=== PATIENT | female | born 1965 | race Caucasian/White ===

== ENCOUNTER 2017-09-28 18:05 | Emergency (ER) | payer OTHER ==
[2017-09-28 18:12] VITALS: BP 150/73
[2017-09-28] MEDS ORDERED: LORAZEPAM 1 MG TABLET PO ONE (19:01)
--- NOTE | 2017-09-28 19:05 | ER Document Report ---
ED Medical Screen (RME) - General Chief Complaint: Anxiety Stated Complaint: SEVERE ANXIETY Time Seen by Provider: 09/28/17 19:00 Mode of Arrival: Ambulatory Information source: Patient Notes: This is a 52-year-old female with a history of depression, anxiety and panic attacks who presents to the emergency room feeling very anxious. Patient has had a couple of deaths in the family over the past year and has had several job changes and has been feeling under stressed. Patient denies any chest pain, shortness of breath. Patient denies any suicidal homicidal patient's. Patient states that currently she is not followed by psychiatrist (her previous one left ). TRAVEL OUTSIDE OF THE [place] IN LAST 30 DAYS: No - Related Data Allergies/Adverse Reactions: bee venom protein (honey bee) Allergy (Verified 09/28/17 18:06) nitrous oxide Allergy (Verified 09/28/17 18:06) sumatriptan [From Imitrex] Allergy (Verified 09/28/17 18:06) Past Medical History - General Information source: Patient - Social History Cigarette use (# per day): No Chew tobacco use (# tins/day): No Frequency of alcohol use: None Drug Abuse: None Lives with: Family Family history: None - Medical History Medical History: Negative Neurological Medical History: Reports: Hx Migraine Renal/ Medical History: Denies: Hx Peritoneal Dialysis Musculoskeltal Medical History: Reports Hx Arthritis Skin Medical History: Reports Other - Atopic dermatitis Psychiatric Medical History: Reports: Hx Anxiety, Hx Depression Past Surgical History: Reports: Hx Orthopedic Surgery Review of Systems - Review of Systems Constitutional: denies: Chills, Fever EENT: denies: Eye discharge, Throat swelling Cardiovascular: denies: Chest pain, Palpitations, Heart racing Respiratory: denies: Hemoptysis, Short of breath, Wheezing Gastrointestinal: No symptoms reported Genitourinary: No symptoms reported Female Genitourinary: No symptoms reported Musculoskeletal: No symptoms reported Skin: No symptoms reported Hematologic/Lymphatic: No symptoms reported Neurological/Psychological: See HPI Physical Exam - Vital signs Vitals: Temp Pulse Resp BP Pulse Ox 98.6 F 96 16 150/73 H 98 09/28/17 18:10 09/28/17 18:10 09/28/17 18:10 09/28/17 18:10 09/28/17 18:10 Notes: Physical exam: GENERAL: 52-year-old female, alert and oriented 3, she does appear anxious. Otherwise, she is in no acute distress. HEAD: Atraumatic, normocephalic. EYES: Pupils equal round and reactive to light, extraocular movements intact, sclera anicteric, conjunctiva are normal. ENT: TMs normal, nares patent, oropharynx clear without exudates. Moist mucous membranes. NECK: Normal range of motion, supple without obvious mass or JVD. LUNGS: Breath sounds clear to auscultation bilaterally and equal. No wheezes rales or rhonchi. HEART: Regular rate and rhythm without murmurs, rubs or gallops. ABDOMEN: Soft, normoactive bowel sounds. No tenderness to palpation. No guarding, no rebound. No masses appreciated. EXTREMITIES: Normal range of motion, no pitting or edema. No clubbing or cyanosis. NEUROLOGICAL: Cranial nerves II through XII grossly intact. Normal speech, moving all extremities. PSYCH: Anxious. Denies suicidal ideation, homicidal ideation SKIN: Warm, Dry, normal turgor, no rashes or lesions noted. Course - Vital Signs Vital signs: Temp Pulse Resp BP Pulse Ox 98.6 F 96 16 150/73 H 98 09/28/17 18:10 09/28/17 18:10 09/28/17 18:10 09/28/17 18:10 09/28/17 18:10 Doctor's Discharge - Discharge Clinical Impression: Panic attack Condition: Stable Disposition: HOME, SELF-CARE Instructions: Anxiety (OM) Additional Instructions: Recommendations: Continue current medicines. Return to the emergency room for any thoughts of wanting to hurt herself or others, or any thoughts that she was losing control. Followup with your psychiatrist or counselor within the next 2 days. If you do not have a psychiatrist or counselor, you can followup at one of the following: Call them for their accepted payment schedule: [facility] [address] Deuce Lawson [phone] Outpatient services: [phone] [place] Office: [phone] Accepts self pay [facility] [address] [facility] [address] [place] [phone] Accepts self pay [facility] [address] [place], [place] Crisis Response: [phone] Outpatient services: [phone] Accepts self pay [facility] [address] [place], [place] [phone] [facility] [address] [place], [place] [phone] [place], [facility] [address] [facility] [address] [place], [place] Accepts self pay Prescriptions: Lorazepam [Ativan 1 mg Tablet] 1 tab PO TID #20 tablet Venlafaxine HCl ER [Effexor Xr 37.5 mg Cap.sr] 37.5 mg PO DAILY #30 cap.sr.24h Forms: Return to Work Referrals: LISA BROWN MD [Primary Care Provider] - Follow up in 3-5 days
== END 2017-09-28 19:06 | disposition home or self-care (01) ==
LOC: ER 18:05
DX: F41.0 Panic disorder [episodic paroxysmal anxiety] (principal); Z91.030 Bee allergy status; Z88.6 Allergy status to analgesic agent; Z88.8 Allergy status to other drugs, medicaments and biological substances
CPT/HCPCS: 99283

== ENCOUNTER 2019-10-19 18:29 | Inpatient (IN) | payer OTHER ==
[2019-10-19] MEDS ORDERED: HYDROCODONE/ACETAMINOPHEN 5-325 MG TABLET PO ONE (18:59)
--- NOTE | 2019-10-19 18:59 | ER Document Report ---
ED Medical Screen (RME) - General Chief Complaint: Leg Pain Stated Complaint: RIGHT LEG PAIN, DRAINAGE Time Seen by Provider: 10/19/19 18:42 Mode of Arrival: Ambulatory Information source: Patient Notes: 54-year-old female presented to ED for red swollen painful right foot ankle and lower leg. She states she has eczema normally to the medial ankle but on Saturday the ankle started swelling becoming red and more painful. She states she went to the urgent care today they sent her site to the hospital due to the amount of redness swelling and pain to the foot and ankle. She states it is weeping. I have ordered blood urine and x-rays to the right foot and ankle. She has a history of eczema, anxiety, panic attack, kidney stones with surgery to remove stones, migraines ovarian cysts with hysterectomy due to the size of the ovarian cyst, tonsillectomy and oral surgery. She states she does smoke 10 cigarettes a day does not use any alcohol but does use CBD oil for her anxiety. She does have a temperature of 100.0 pulse of 109 blood pressure of 163/102 was 20 respirations. She states she does not have a history of high blood pressure. I have greeted and performed a rapid initial assessment of this patient. A comprehensive ED assessment and evaluation of the patient, analysis of test results and completion of medical decision making process will be conducted by an additional ED providers. TRAVEL OUTSIDE OF THE [place] IN LAST 30 DAYS: No - Related Data Allergies/Adverse Reactions: bee venom protein (honey bee) Allergy (Verified 09/28/17 18:06) nitrous oxide Allergy (Verified 09/28/17 18:06) sumatriptan [From Imitrex] Allergy (Verified 09/28/17 18:06) Past Medical History - Social History Frequency of alcohol use: None Drug Abuse: None Family history: None Neurological Medical History: Reports: Hx Migraine Renal/ Medical History: Denies: Hx Peritoneal Dialysis Musculoskeltal Medical History: Reports Hx Arthritis Psychiatric Medical History: Reports: Hx Anxiety, Hx Depression Past Surgical History: Reports: Hx Orthopedic Surgery Physical Exam - Vital signs Vitals: Temp Pulse Resp BP Pulse Ox 100.0 F 109 H 20 163/102 H 97 10/19/19 18:33 10/19/19 18:33 10/19/19 18:33 10/19/19 18:33 10/19/19 18:33 Course - Vital Signs Vital signs: Temp Pulse Resp BP Pulse Ox 100.0 F 109 H 20 163/102 H 97 10/19/19 18:33 10/19/19 18:33 10/19/19 18:33 10/19/19 18:33 10/19/19 18:33
[2019-10-19 19:27] LABS: ABSOLUTE BASOPHILS # (AUTO) 0.1 10^3/uL (0.0-0.2); ABSOLUTE EOSINOPHILS # (AUTO) 0.2 10^3/uL (0.0-0.6); ABSOLUTE LYMPHOCYTES (AUTO) 2.2 10^3/uL (0.5-4.7); ABSOLUTE MONOCYTES (AUTO) 0.7 10^3/uL (0.1-1.4); ABSOLUTE NEUT (AUTO) 7.7 10^3/uL (1.7-8.2); BASOPHILS % (AUTO) 0.5 % (0-2); EOSINOPHILS % (AUTO) 1.6 % (0-6); HEMATOCRIT 28.5 % (36.0-47.0); HEMOGLOBIN 9.2 g/dL (12.0-15.5); LYMPHOCYTES % (AUTO) 20.6 % (13-45); MEAN CORPUSCULAR HEMOGLOBIN 24.1 pg (27.0-33.4); MEAN CORPUSCULAR HGB CONC 32.4 g/dL (32.0-36.0); MEAN CORPUSCULAR VOLUME 74 fl (80-97); MONOCYTES % (AUTO) 6.4 % (3-13); PLATELET COUNT 360 10^3/uL (150-450); RED BLOOD COUNT 3.83 10^6/uL (3.72-5.28); SEGMENTED NEUTROPHILS % (AUTO) 70.9 % (42-78); TOTAL CELLS COUNTED % (AUTO) 100 %; WHITE BLOOD COUNT 10.9 10^3/uL (4.0-10.5)
[2019-10-19 19:38] LABS: APPEARANCE,URINE CLEAR; BILIRUBIN,URINE NEGATIVE (NEGATIVE); COLOR,URINE COLORLESS; GLUCOSE, URINE NEGATIVE (NEGATIVE); KETONES,URINE TRACE mg/dL (NEGATIVE); LEUKOCYTE ESTERASE,URINE NEGATIVE (NEGATIVE); NITRITE,URINE NEGATIVE (NEGATIVE); PROTEIN,URINE NEGATIVE (NEGATIVE); URINE SPECIFIC GRAVITY 1.002; UROBILINOGEN,URINE NEGATIVE mg/dL (<2.0)
[2019-10-19 19:45] LABS: ALBUMIN 3.8 g/dL (3.5-5.0); ALKALINE PHOSPHATASE 28 U/L (38-126); ANION GAP 11 (5-19); ASPARTATE AMINO TRANSFERASE 16 U/L (14-36); BILIRUBIN,DIRECT 0.3 mg/dL (0.0-0.4); BILIRUBIN,TOTAL 0.3 mg/dL (0.2-1.3); BLOOD UREA NITROGEN 7 mg/dL (7-20); CALCIUM 8.8 mg/dL (8.4-10.2); CARBON DIOXIDE 27 mmol/L (22-30); CHLORIDE 103 mmol/L (98-107); GLUCOSE 89 mg/dL (75-110); POTASSIUM 3.2 mmol/L (3.6-5.0)
[2019-10-19 20:11] LABS: C-REACTIVE PROTEIN 211.4 mg/L (<10.0)
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
[2019-10-19] MEDS ORDERED: PIPERACILLIN/TAZOBACTAM 4.5 GM VIAL IV ONE (21:22)
[2019-10-19] MEDS ORDERED: VANCOMYCIN HCL INJ 1000 MG VIAL IV ONE ×2 (21:23→23:59)
[2019-10-19] MEDS ORDERED: MORPHINE SULFATE 10 MG/ML INJ IV ONE (21:24)
[2019-10-19] MEDS ORDERED: ONDANSETRON HCL INJ/PF 4 MG/2 ML SDV IV ONE (21:25)
--- NOTE | 2019-10-19 21:25 | ER Document Report ---
ED General - General Chief Complaint: Leg Pain Stated Complaint: RIGHT LEG PAIN, DRAINAGE Time Seen by Provider: 10/19/19 18:42 Mode of Arrival: Ambulatory Information source: Patient TRAVEL OUTSIDE OF THE [place] IN LAST 30 DAYS: No - HPI Notes: Patient is a 54-year-old female with a history of atopic eczema who presents for right lower leg swelling and pain. Patient states symptoms began with a flare of her eczema her right medial ankle four days ago and quickly worsened. Patient states her eczema usually flares due to stress and she endorses stress at work. Patient states her symptoms progressed as her eczema flare worsened with spreading erythema and blistering to her upper oconnor and posterior calf. Patient states the blisters popped over the past 2 days and have been weeping. Patient reports the pain is the worst to her medial ankle and describes it as a hot, sharp, stabbing pain. Patient has used cortisone 10 and aloe cream for relief. She denies fever, chills, nausea, vomiting, and abdominal pain. Patient endorses smoking tobacco but denies alcohol and recreational drug use. She reports using CBD for anxiety. - Related Data Allergies/Adverse Reactions: bee venom protein (honey bee) Allergy (Verified 09/28/17 18:06) nitrous oxide Allergy (Verified 09/28/17 18:06) sumatriptan [From Imitrex] Allergy (Verified 09/28/17 18:06) Past Medical History - General Information source: Patient - Social History Smoking Status: Current Every Day Smoker Frequency of alcohol use: None Drug Abuse: None Family History: Reviewed & Not Pertinent Neurological Medical History: Reports: Hx Migraine Renal/ Medical History: Denies: Hx Peritoneal Dialysis Musculoskeletal Medical History: Reports Hx Arthritis Skin Medical History: Reports Hx Eczema Psychiatric Medical History: Reports: Hx Anxiety, Hx Depression Past Surgical History: Reports: Hx Orthopedic Surgery Review of Systems - Review of Systems Constitutional: No symptoms reported EENT: No symptoms reported Cardiovascular: No symptoms reported Respiratory: No symptoms reported Gastrointestinal: No symptoms reported Genitourinary: No symptoms reported Female Genitourinary: No symptoms reported Musculoskeletal: See HPI Skin: See HPI Hematologic/Lymphatic: No symptoms reported Neurological/Psychological: No symptoms reported Physical Exam - Vital signs Vitals: Temp Pulse Resp BP Pulse Ox 100.0 F 109 H 20 163/102 H 97 10/19/19 18:33 10/19/19 18:33 10/19/19 18:33 10/19/19 18:33 10/19/19 18:33 - Notes Notes: PHYSICAL EXAMINATION: GENERAL: Well-appearing, well-nourished and in no acute distress. HEAD: Atraumatic, normocephalic. EYES: Pupils equal round and reactive to light, extraocular movements intact, sclera anicteric, conjunctiva are normal. ENT: nares patent, oropharynx clear without exudates. Moist mucous membranes. NECK: Normal range of motion, supple without lymphadenopathy LUNGS: Breath sounds clear to auscultation bilaterally and equal. No wheezes rales or rhonchi. HEART: Regular rate and rhythm without murmurs ABDOMEN: Soft, nontender, normoactive bowel sounds. No guarding, no rebound. No masses appreciated. EXTREMITIES: Significant edema and erythema to the right lower extremity. Scaling and peeling skin noted on the anterior and medial ankle. Multiple popped blisters on the upper oconnor and posterior calf. Area warm to touch. NEUROLOGICAL: No focal neurological deficits. Moves all extremities spontaneously and on command. PSYCH: Normal mood, normal affect. SKIN: Warm, Dry, normal turgor, no rashes or lesions noted. Course - Re-evaluation Re-evalutation: Patient is a 54 y/o female with a hx of eczema who presents with right leg pain and swelling that has been ongoing for the last four days. Patient's symptoms b irene as an eczema flare to her right medial ankle. Her symptoms worsened and on exam and she has extensive swelling and erythema to her right lower leg with multiple weeping blisters. Patient is afebrile and vital signs are normal. Elevated WBC of 10.9 and CRP of 211.4. IV Vancomycin and Zosyn were started. There was a concern for necrotizing fasciitis due to the severity of her cellulitis so CT leg was ordered which was negative. Discussed patient with Dr. Whiteside, hospitalist, and patient will admitted to the medical floor as a full admission. - Vital Signs Vital signs: Temp Pulse Resp BP Pulse Ox 99.1 F 82 20 156/71 H 100 10/20/19 03:09 10/20/19 03:09 10/20/19 03:09 10/20/19 03:09 10/20/19 03:09 - Laboratory Result Diagrams: 10/19/19 19:07 10/19/19 19:07 Laboratory results interpreted by me: 10/19/19 10/19/19 10/19/19 19:07 19:07 19:21 WBC 10.9 H Hgb 9.2 L Hct 28.5 L MCV 74 L MCH 24.1 L RDW 17.0 H Potassium 3.2 L Alkaline Phosphatase 28 L C-Reactive Protein 211.4 H Urine Ketones TRACE H Urine Blood SMALL H - Diagnostic Test Radiology reviewed: Image reviewed, Reports reviewed Discharge - Discharge Clinical Impression: CRP elevated Cellulitis, leg Qualifiers: Laterality: right Qualified Code(s): L03.115 - Cellulitis of right lower limb Eczema Qualifiers: Eczema type: unspecified Qualified Code(s): L30.9 - Dermatitis, unspecified Condition: Stable Disposition: ADMITTED INPATIENT Admitting Provider: Miesha (Hospitalist) Unit Admitted: Medical Floor
[2019-10-19] MEDS ORDERED: ONDANSETRON HCL INJ/PF 4 MG/2 ML SDV ONE (21:47)
--- NOTE | 2019-10-19 23:02 | RADIOLOGY REPORT (SQ) ---
CT LOWER EXTREMITY WITH IV CONTRAST HISTORY: Leg pain. Evaluate for necrotizing fasciitis. COMPARISON: Radiographs from earlier the same day. TECHNIQUE: CT scan of the right lower extremity was performed without IV contrast. This exam was performed according to our departmental dose-optimization program, which includes automated exposure control, adjustment of the mA and/or kV according to patient size and/or use of iterative reconstruction technique. FINDINGS: There is diffuse subcutaneous edema throughout the right lower extremity. No abscess or fluid collection is seen. There is myofascial edema but no edema or fluid collection is seen within the compartments of the right leg. The subcutaneous or intramuscular air. There is no cortical erosion or periosteal reaction to suggest acute osteomyelitis. No acute fracture. There is a tiny Caballero's cyst. Trace knee joint fluid but no effusion. IMPRESSION: 1. Diffuse swelling of the right leg which may be secondary to cellulitis, venous stasis, or lymphedema. 2. No intramuscular edema, air, or fluid collection, with no evidence of necrotizing fasciitis. However, please note that contrast-enhanced MRI is more sensitive for the evaluation of early necrotizing fasciitis, and may be performed if there is high clinical concern.
[2019-10-20] MEDS ORDERED: MORPHINE SULFATE 10 MG/ML INJ IV PRN ×4 (01:31→01:41)
[2019-10-20] MEDS ORDERED: MELATONIN 5 MG TABLET PO PRN (01:31)
[2019-10-20] MEDS ORDERED: MAG HYDROX/AL HYDROX/SIMETH SUSP 30 ML UDCUP PO PRN (01:31)
[2019-10-20] MEDS ORDERED: LORAZEPAM INJ 2 MG/1 ML VIAL IV PRN (01:31)
[2019-10-20] MEDS ORDERED: PROMETHAZINE HCL INJ 25 MG/1 ML VIAL IV PRN ×2 (01:31→07:30)
[2019-10-20] MEDS ORDERED: METOPROLOL TARTRATE PF/INJ 5 MG/5 ML SDV IV PRN (01:31)
[2019-10-20] MEDS ORDERED: MAGNESIUM HYDROXIDE SUSP 30 ML UDCUP PO PRN (01:31)
[2019-10-20] MEDS ORDERED: GUAIFENESIN SYRP 200 MG/10 ML UDC PO PRN (01:31)
[2019-10-20] MEDS ORDERED: ACETAMINOPHEN 325 MG TABLET PO PRN (01:31)
[2019-10-20] MEDS ORDERED: HYDRALAZINE HCL INJ/PF 20 MG/1 ML SDV IV PRN (01:31)
[2019-10-20] MEDS: RINGERS SOLUTION,LACTATED 1,000 ML IV PRN ×2 (03:27→09:25)
--- NOTE | 2019-10-20 04:27 | PDOC H&P ---
History of Present Illness Admission Date/PCP: 10/20/19 01:25 No local PCP Patient complains of: Right lower extremity swelling and pain History of Present Illness: ADRIANA GRANADOS is a 54 year old female who presented the emergency room history of right lower extremity swelling and pain. She admits that 5 days ago she noticed a small area of eczema on her right medial ankle which appeared to be red. From that time the redness and swelling has gradually increased becoming very severe over the last 2 days with with multiple small superficial bullae with weeping and crusting. Her pain is a constant severe sharp hot stabbing sensation primarily centered around her right medial ankle without radiation, but worsened by walking or weightbearing. She denies other associated or accomp anying signs and symptoms. She denies prior similar episodes. She has not identified additional aggravating or ameliorating factors for her right lower extremity swelling and pain. In the emergency room she was found to have a minimally elevated white blood count and an obvious extensive cellulitis of the right lower extremity. IV antibiotic therapy was initiated in the emergency room. She was subsequently admitted to the hospital for further evaluation and treatment. Past Medical History Cardiac Medical History: Denies: Coronary Artery Disease, Hyperlipidema, Hypertension Pulmonary Medical History: Denies: Asthma, Chronic Obstructive Pulmonary Disease (COPD) EENT Medical History: Denies: Cataracts, Ears - Hearing aids Neurological Medical History: Reports: Migraine Denies: Hemorrhagic CVA, Ischemic CVA, Seizures Endocrine Medical History: Reports: Obesity Denies: Diabetes Mellitus Type 1, Diabetes Mellitus Type 2, Hyperthyroidism, Hypothyroidism Renal/ Medical History: Denies: Chronic Kidney Disease, Nephrolithiasis Malignancy Medical History: Reports: None GI Medical History: Denies: Cirrhosis, Hepatitis, Peptic Ulcer Disease Musculoskeltal Medical History: Reports: Arthritis Denies: Fibromyalgia, Gout Skin Medical History: Reports: Eczema Denies: Psoriasis Psychiatric Medical History: Reports: Depression, General Anxiety Disorder, Tobacco Dependency, Other - Panic attacks Denies: Alcohol Dependency, Substance Abuse Traumatic Medical History: Reports: None Hematology: Denies: Anemia, Bleeding Tendencies Infectious Medical History: Reports: Methicillin-Resistant Staph Aureus - Remote previous lower extremity cellulitis Past Surgical History Past Surgical History: Reports: Hysterectomy, Orthopedic Surgery, Tonsillectomy, Other - Left ureteral stone, oral surgeries Social History Information Source: Patient Lives with: Spouse/Significant other Smoking Status: Current Every Day Smoker Electronic Cigarette use?: No Frequency of Alcohol Use: None Hx Recreational Drug Use: No Drugs: None Hx Prescription Drug Abuse: No - Advance Directive Resuscitation Status: Full Code Surrogate healthcare decision maker:: Breezy Palomino Family History Family History: CAD, DM, Hypertension. denies: Malignancy Parental Family History Reviewed: Yes Children Family History Reviewed: No Sibling(s) Family History Reviewed.: Yes Medication/Allergy Home Medications: Lorazepam [Ativan 1 mg Tablet] 1 tab PO TID #20 tablet 09/28/17 Venlafaxine HCl ER [Effexor Xr 37.5 mg Cap.sr] 37.5 mg PO DAILY #30 cap.sr.24h 09/28/17 Allergies/Adverse Reactions: bee venom protein (honey bee) Allergy (Verified 09/28/17 18:06) nitrous oxide Allergy (Verified 09/28/17 18:06) sumatriptan [From Imitrex] Allergy (Verified 09/28/17 18:06) Review of Systems Constitutional: ABSENT: chills, fever(s) Eyes: ABSENT: visual disturbances, other - Eye pain Ears: ABSENT: hearing changes, other - Ear pain Nose, Mouth, and Throat: ABSENT: headache(s), sore throat Cardiovascular: ABSENT: chest pain, palpitations Respiratory: ABSENT: cough, dyspnea Gastrointestinal: ABSENT: abdominal pain, constipation, diarrhea, nausea, vomiting Genitourinary: ABSENT: dysuria, hematuria Musculoskeletal: ABSENT: back pain, joint swelling, muscle weakness Integumentary: PRESENT: as per HPI, rash - Right lower extremity. ABSENT: pruritus Neurological: ABSENT: confusion, convulsions, focal weakness, memory loss, syncope Psychiatric: ABSENT: anxiety, depression Endocrine: ABSENT: cold intolerance, heat intolerance Hematologic/Lymphatic: ABSENT: easy bleeding, easy bruising Allergic/Immunologic: ABSENT: seasonal rhinorrhea Physical Exam Vital Signs: Temp Pulse Resp BP Pulse Ox 98.1 F 78 16 155/59 H 98 10/20/19 00:23 10/20/19 00:23 10/20/19 00:23 10/20/19 00:23 10/20/19 00:23 Intake & Output 10/18/19 10/19/19 10/20/19 23:59 23:59 23:59 Intake Total 100 1000 Balance 100 1000 Weight 134.5 kg General appearance: PRESENT: no acute distress, cooperative, morbidly obese Head exam: PRESENT: atraumatic, normocephalic Eye exam: PRESENT: conjunctiva pink. ABSENT: conjunctival injection, scleral icterus Ear exam: PRESENT: normal external ear exam. ABSENT: bleeding, drainage Mouth exam: PRESENT: dry mucosa, neck supple Neck exam: ABSENT: thyromegaly, tracheal deviation Respiratory exam: PRESENT: clear to auscultation michael, symmetrical, unlabored Cardiovascular exam: PRESENT: RRR. ABSENT: clicks, gallop, rubs Pulses: PRESENT: normal carotid pulses, normal radial pulses Vascular exam: PRESENT: normal capillary refill. ABSENT: pallor GI/Abdominal exam: PRESENT: normal bowel sounds, soft. ABSENT: tenderness Rectal exam: PRESENT: deferred Extremities exam: PRESENT: tenderness - Erythema and edema of the right lower extremity with tenderness around the right medial malleolus. ABSENT: joint swelling Musculoskeletal exam: ABSENT: deformity, dislocation Neurological exam: PRESENT: alert, oriented to person, oriented to place, orien onur to time, oriented to situation, CN II-XII grossly intact. ABSENT: motor sensory deficit Psychiatric exam: PRESENT: appropriate affect, normal mood Skin exam: PRESENT: dry, erythema - Erythema and edema of the right lower extremity with multiple small bullae with weeping and crusting., intact, warm. ABSENT: jaundice, urticaria Results Laboratory Results: 10/19/19 19:07 10/19/19 19:07 10/19/19 10/19/19 10/19/19 19:07 19:07 19:21 WBC 10.9 H RBC 3.83 Hgb 9.2 L Hct 28.5 L MCV 74 L MCH 24.1 L MCHC 32.4 RDW 17.0 H Plt Count 360 Seg Neutrophils % 70.9 Sodium 141.4 Potassium 3.2 L Chloride 103 Carbon Dioxide 27 Anion Gap 11 BUN 7 Creatinine 0.62 Est GFR ( Amer) > 60 Glucose 89 Lactic Acid Calcium 8.8 Total Bilirubin 0.3 AST 16 Alkaline Phosphatase 28 L C-Reactive Protein 211.4 H Total Protein 7.0 Albumin 3.8 Urine Color COLORLESS Urine Appearance CLEAR Urine pH 7.0 Ur Specific Center 1.002 Urine Protein NEGATIVE Urine Glucose (UA) NEGATIVE Urine Ketones TRACE H Urine Blood SMALL H Urine Nitrite NEGATIVE Ur Leukocyte Esterase NEGATIVE Urine WBC (Auto) 0 10/19/19 20:44 WBC RBC Hgb Hct MCV MCH MCHC RDW Plt Count Seg Neutrophils % Sodium Potassium Chloride Carbon Dioxide Anion Gap BUN Creatinine Est GFR ( Amer) Glucose Lactic Acid 0.8 Calcium Total Bilirubin AST Alkaline Phosphatase C-Reactive Protein Total Protein Albumin Urine Color Urine Appearance Urine pH Ur Specific Center Urine Protein Urine Glucose (UA) Urine Ketones Urine Blood Urine Nitrite Ur Leukocyte Esterase Urine WBC (Auto) Impressions: Ankle X-Ray 10/19/19 18:54 IMPRESSION: 1. No fracture or dislocation. 2. Diffuse reticulation present throughout the subcutaneous tissues raising the possibility of edema, cellulitis, venous stasis. 3. Possible, diffuse soft tissue swelling of the forefoot. Foot X-Ray 10/19/19 18:54 IMPRESSION: 1. No fracture or dislocation. 2. Diffuse reticulation present throughout the subcutaneous tissues raising the possibility of edema, cellulitis, venous stasis. 3. Possible, diffuse soft tissue swelling of the forefoot. Lower Extremity CT 10/19/19 21:21 IMPRESSION: 1. Diffuse swelling of the right leg which may be secondary to cellulitis, venous stasis, or lymphedema. 2. No intramuscular edema, air, or fluid collection, with no evidence of necrotizing fasciitis. However, please note that contrast-enhanced MRI is more sensitive for the evaluation of early necrotizing fasciitis, and may be performed if there is high clinical concern. Assessment and Plan - Diagnosis (1) Cellulitis of right lower leg Is this a current diagnosis for this admission?: Yes (2) Hypertension Qualifiers: Hypertension type: unspecified Qualified Code(s): I10 - Essential (primary) hypertension Is this a current diagnosis for this admission?: Yes (3) CRP elevated Is this a current diagnosis for this admission?: Yes (4) Hypokalemia Is this a current diagnosis for this admission?: Yes (5) Morbid obesity Is this a current diagnosis for this admission?: Yes (6) Eczema Qualifiers: Eczema type: unspecified Qualified Code(s): L30.9 - Dermatitis, unspecified Is this a current diagnosis for this admission?: Yes - Plan Summary Summary: Patient will be admitted to the medical floor where she will receive routine supportive and symptomatic cares. She will be treated with IV antibiotics utilizing cefepime and Zyvox initially pending culture results. She will use Ativan 1 mg IV every 4 hours as needed for anxiety or restlessness. She will use morphine sulfate 2 to 4 mg IV every 2 hours as needed for pain. She will receive oral potassium repletion. She will be placed on a cardiac diet. CBCs, metabolic profiles and additional laboratory and/or radiographic evaluations will be obtained as needed. - Time Time Spent with patient: 15-24 minutes Anticipated Discharge Disposition: Home, Self Care Anticipated Discharge Timeframe: within 72 hours - Inpatient Certification Based on my medical assessment, after consideration of the patient's comorbidities, presenting symptoms, or acuity I expect that the services needed warrant INPATIENT care.: Yes I certify that my determination is in accordance with my understanding of Medicare's requirements for reasonable and necessary INPATIENT services [42 CFR 412.3e].: Yes Medical Necessity: Significant Comorbidiites Make Outpatient Treatment Too Risky, Need for Pain Control, Need for IV Antibiotics
[2019-10-20] MEDS: HEPARIN SOD (PORCINE) 5,000 UNIT/ML 1 ML VIAL SUBCUT SCH ×3 (05:21→21:47)
[2019-10-20] MEDS: CEFEPIME HCL 2 GM in DEXTROSE 5%-WATER 50 ML IV SCH ×2 (09:26→21:47)
[2019-10-20] MEDS: DOCUSATE SODIUM 100 MG CAPSULE PO SCH ×2 (09:27→17:09)
[2019-10-20] MEDS: POTASSIUM CHLORIDE 10 MEQ TABLET.ER PO SCH ×3 (09:27→17:09)
[2019-10-20] MEDS: LINEZOLID 600 MG/300 ML RTUPB IV SCH ×2 (09:55→21:48)
[2019-10-20] MEDS ORDERED: CEFEPIME 2 GM/D5W RTU 2 GM/50 ML RTUPB IV SCH (10:00)
[2019-10-20] MEDS: MORPHINE SULFATE 10 MG/ML INJ IV PRN ×2 (14:06→21:47)
[2019-10-20] MEDS: LORAZEPAM 0.5 MG TABLET PO PRN (17:43)
--- NOTE | 2019-10-20 18:21 | Progress Note ---
Provider Note Provider Note: Patient is a 54-year-old female with a past medical history significant for, arthritis, obesity, depression/general anxiety disorder, and tobacco dependency who was admitted early this morning by the knockout worker for Cellulitis of the right lower leg. Overnight events, nursing notes, vital signs, laboratory results, imaging studies, H&P, and orders reviewed. Agree with plan of care as established by the previous provider. In addition, patient complains of generalized anxiety and panic attacks; therefore have ordered ativan 0.5 mg po q8h prn. Have also requested registered account administrator of diet recommendations/education regarding weight loss.
[2019-10-21] MEDS: HEPARIN SOD (PORCINE) 5,000 UNIT/ML 1 ML VIAL SUBCUT SCH ×3 (05:29→21:19)
[2019-10-21] MEDS: LORAZEPAM 0.5 MG TABLET PO PRN ×2 (05:39→21:19)
[2019-10-21 06:44] LABS: HEMATOCRIT 26.4 % (36.0-47.0); HEMOGLOBIN 8.6 g/dL (12.0-15.5); MEAN CORPUSCULAR HEMOGLOBIN 24.1 pg (27.0-33.4); MEAN CORPUSCULAR HGB CONC 32.7 g/dL (32.0-36.0); MEAN CORPUSCULAR VOLUME 74 fl (80-97); PLATELET COUNT 308 10^3/uL (150-450); RED BLOOD COUNT 3.58 10^6/uL (3.72-5.28); RED CELL DISTRIBUTION WIDTH 17.4 % (11.5-14.0); WHITE BLOOD COUNT 8.8 10^3/uL (4.0-10.5)
[2019-10-21 07:01] LABS: ANION GAP 10 (5-19); BLOOD UREA NITROGEN 7 mg/dL (7-20); CALCIUM 8.8 mg/dL (8.4-10.2); CARBON DIOXIDE 30 mmol/L (22-30); CHLORIDE 101 mmol/L (98-107); GLUCOSE 113 mg/dL (75-110); POTASSIUM 3.7 mmol/L (3.6-5.0)
[2019-10-21] MEDS: POTASSIUM CHLORIDE 10 MEQ TABLET.ER PO SCH ×3 (09:39→17:26)
[2019-10-21] MEDS: DOCUSATE SODIUM 100 MG CAPSULE PO SCH ×2 (09:39→17:26)
[2019-10-21] MEDS: CEFEPIME HCL 2 GM in DEXTROSE 5%-WATER 50 ML IV SCH ×2 (09:39→21:19)
[2019-10-21] MEDS: MORPHINE SULFATE 10 MG/ML INJ IV PRN ×2 (09:40→20:08)
[2019-10-21] MEDS: LINEZOLID 600 MG/300 ML RTUPB IV SCH ×2 (10:43→21:20)
[2019-10-21] MEDS ORDERED: NICOTINE 14 MG/24 HR PATCH.TD24 TD PRN (10:46)
--- NOTE | 2019-10-21 13:07 | CDI QUERY ---
CDI Query CDI Review: Documentation in the Medical Record indicates this patient has: Height:5 ft. 6 in. Weight: 134.5 kg (295.9 lbs) Calculated BMI: 47.75 kg/m2 The following is also documented in the Medical Record: Per H&P: Morbid obesity Per Progress Note: Have also requested registered nurse cardiac telemetry of diet recommendations/education regarding weight loss. Based on your medical judgement, can you further clarify in the Progress Notes the diagnosis associated with these findings. Documentation of the patients BMI supports the Obesity diagnoses: Morbid Obesity / BMI 47.75 kg/m2 Overweight / BMI 47.75 kg/m2 Obesity / BMI 47.75 kg/m2 Other condition (please specify) None of the above / Not applicable Thank you for your consideration. SHADE Hunter RN Clinical Filer Repairer Physician Advisor
[2019-10-21] MEDS ORDERED: HYDROCORTISONE 1% CREAM 28.35 GM TP PRN (17:02)
--- NOTE | 2019-10-21 17:05 | PDOC PROGRESS REPORT ---
Subjective Progress Note for:: 10/21/19 Subjective:: Patient endorses only mild improvement in the swelling in her right lower extremity. Denies chills. Endorses she has a history of atopic dermatitis. Reason For Visit: RIGHT LOWER EXTREMITY CELLULITIS Physical Exam Vital Signs: Temp Pulse Resp BP Pulse Ox 98.2 F 82 19 165/70 H 97 10/21/19 12:21 10/21/19 12:21 10/21/19 12:21 10/21/19 12:21 10/21/19 12:21 Intake & Output 10/20/19 10/21/19 10/22/19 06:59 06:59 06:59 Intake Total 1320 4280 1265 Balance 1320 4280 1265 Weight 133.2 kg 133.2 kg 133.2 kg General appearance: PRESENT: no acute distress, cooperative Neck exam: ABSENT: JVD GI/Abdominal exam: PRESENT: soft. ABSENT: ascites, distended Extremities exam: PRESENT: other - Erythema and swelling of the right lower extremity much more significant than the left leg. Patch of erythema noted going up anterior oconnor. Atopic dermatitis noted on the right ankle. Neurological exam: PRESENT: alert, awake, oriented to person, oriented to place Psychiatric exam: ABSENT: agitated, anxious Results Laboratory Results: 10/21/19 06:19 10/21/19 06:19 10/21/19 10/21/19 10/21/19 06:19 06:19 06:19 WBC 8.8 RBC 3.58 L Hgb 8.6 L Hct 26.4 L MCV 74 L MCH 24.1 L MCHC 32.7 RDW 17.4 H Plt Count 308 Sodium 141.3 Potassium 3.7 Chloride 101 Carbon Dioxide 30 Anion Gap 10 BUN 7 Creatinine 0.62 Est GFR ( Amer) > 60 Glucose 113 H Calcium 8.8 Magnesium 2.1 TSH 2.72 Impressions: Ankle X-Ray 10/19/19 18:54 IMPRESSION: 1. No fracture or dislocation. 2. Diffuse reticulation present throughout the subcutaneous tissues raising the possibility of edema, cellulitis, venous stasis. 3. Possible, diffuse soft tissue swelling of the forefoot. Foot X-Ray 10/19/19 18:54 IMPRESSION: 1. No fracture or dislocation. 2. Diffuse reticulation present throughout the subcutaneous tissues raising the possibility of edema, cellulitis, venous stasis. 3. Possible, diffuse soft tissue swelling of the forefoot. Lower Extremity CT 10/19/19 21:21 IMPRESSION: 1. Diffuse swelling of the right leg which may be secondary to cellulitis, venous stasis, or lymphedema. 2. No intramuscular edema, air, or fluid collection, with no evidence of necrotizing fasciitis. However, please note that contrast-enhanced MRI is more sensitive for the evaluation of early necrotizing fasciitis, and may be performed if there is high clinical concern. Assessment and Plan - Diagnosis (1) Cellulitis of right lower leg Is this a current diagnosis for this admission?: Yes Plan: Continue broad-spectrum antibiotics with linezolid and cefepime. Blood culture currently negative. Patient is afebrile. Leukocytosis seems to be resolving. Area demarcated and will be reassessed tomorrow (2) Atopic dermatitis Qualifiers: Atopic dermatitis type: unspecified Qualified Code(s): L20.9 - Atopic dermatitis, unspecified Is this a current diagnosis for this admission?: Yes Plan: This is likely the source of patient's skin breakdown leading to cellulitis. She has atopic dermatitis involving right ankle. Hydrocortisone cream as needed. (3) Lymphedema of right lower extremity Is this a current diagnosis for this admission?: Yes Plan: Chronic. Encourage leg elevation. (4) Hypertension Qualifiers: Hypertension type: unspecified Qualified Code(s): I10 - Essential (primary) hypertension Is this a current diagnosis for this admission?: Yes Plan: BP is elevated currently but she denies history of hypertension. Possibly could be secondary to pain. Pain control. Hold off on standing antihypertensive for now but can use as needed if excessively high blood pressures. (5) Morbid obesity with BMI of 45.0-49.9, adult Is this a current diagnosis for this admission?: Yes - Time Time Spent with patient: 15-24 minutes Anticipated Discharge Disposition: Home, Self Care Anticipated Discharge Timeframe: within 48 hours
[2019-10-21] MEDS ORDERED: CHLORTHALIDONE 25 MG TABLET PO SCH (18:45)
[2019-10-21] MEDS: LOSARTAN POTASSIUM 50 MG TABLET PO SCH (20:00)
[2019-10-22] MEDS: HEPARIN SOD (PORCINE) 5,000 UNIT/ML 1 ML VIAL SUBCUT SCH ×3 (06:09→21:41)
[2019-10-22 06:46] LABS: ABSOLUTE RETICS # 0.047 10^6/uL (0.028-0.122); RETICULOCYTE COUNT (AUTO) 1.24 % (0.66-2.85)
[2019-10-22 07:03] LABS: ANION GAP 11 (5-19); BLOOD UREA NITROGEN 5 mg/dL (7-20); CALCIUM 8.7 mg/dL (8.4-10.2); CARBON DIOXIDE 30 mmol/L (22-30); CHLORIDE 101 mmol/L (98-107); GLUCOSE 122 mg/dL (75-110); IRON(TIBC) 35.2 ug/dL (37-170); POTASSIUM 4.1 mmol/L (3.6-5.0)
[2019-10-22] MEDS: POTASSIUM CHLORIDE 10 MEQ TABLET.ER PO SCH ×3 (07:57→19:37)
[2019-10-22 08:42] LABS: FOLATE 6.96 ng/mL (>2.76)
[2019-10-22] MEDS: DOCUSATE SODIUM 100 MG CAPSULE PO SCH ×2 (10:11→17:30)
[2019-10-22] MEDS: LOSARTAN POTASSIUM 50 MG TABLET PO SCH ×2 (10:11→21:42)
[2019-10-22] MEDS: LINEZOLID 600 MG/300 ML RTUPB IV SCH ×2 (10:12→22:56)
[2019-10-22] MEDS: CEFEPIME HCL 2 GM in DEXTROSE 5%-WATER 50 ML IV SCH ×2 (10:12→21:41)
--- NOTE | 2019-10-22 17:08 | PDOC PROGRESS REPORT ---
Subjective Progress Note for:: 10/22/19 Subjective:: Patient feeling better. Still having pain in her leg. Reason For Visit: RIGHT LOWER EXTREMITY CELLULITIS Physical Exam Vital Signs: Temp Pulse Resp BP Pulse Ox 98.7 F 72 16 168/72 H 96 10/22/19 10:46 10/22/19 10:46 10/22/19 10:46 10/22/19 10:46 10/22/19 10:46 Intake & Output 10/21/19 10/22/19 10/23/19 06:59 06:59 06:59 Intake Total 4280 3795 350 Balance 4280 3795 350 Weight 133.2 kg 133.2 kg General appearance: PRESENT: no acute distress, cooperative Neck exam: ABSENT: JVD Respiratory exam: PRESENT: unlabored GI/Abdominal exam: ABSENT: ascites, distended Extremities exam: PRESENT: other - redness in anterior oconnor from right knee to ankle. atopic dermatitis in right ankle Neurological exam: PRESENT: alert, awake, oriented to person, oriented to place, oriented to time Results Laboratory Results: 10/21/19 06:19 10/22/19 06:00 10/22/19 10/22/19 06:00 06:00 Retic Count (auto) 1.24 Sodium 141.8 Potassium 4.1 Chloride 101 Carbon Dioxide 30 Anion Gap 11 BUN 5 L Creatinine 0.61 Est GFR ( Amer) > 60 Glucose 122 H Calcium 8.7 Iron 35.2 L TIBC 321 % Saturation 11 Ferritin 62.50 Vitamin B12 266.0 Folate 6.96 Impressions: Ankle X-Ray 10/19/19 18:54 IMPRESSION: 1. No fracture or dislocation. 2. Diffuse reticulation present throughout the subcutaneous tissues raising the possibility of edema, cellulitis, venous stasis. 3. Possible, diffuse soft tissue swelling of the forefoot. Foot X-Ray 10/19/19 18:54 IMPRESSION: 1. No fracture or dislocation. 2. Diffuse reticulation present throughout the subcutaneous tissues raising the possibility of edema, cellulitis, venous stasis. 3. Possible, diffuse soft tissue swelling of the forefoot. Lower Extremity CT 10/19/19 21:21 IMPRESSION: 1. Diffuse swelling of the right leg which may be secondary to cellulitis, venous stasis, or lymphedema. 2. No intramuscular edema, air, or fluid collection, with no evidence of necrotizing fasciitis. However, please note that contrast-enhanced MRI is more sensitive for the evaluation of early necrotizing fasciitis, and may be performed if there is high clinical concern. Assessment and Plan - Diagnosis (1) Cellulitis of right lower leg Is this a current diagnosis for this admission?: Yes Plan: Continue broad-spectrum antibiotics with linezolid and cefepime. Blood culture currently negative. Patient is afebrile. Leukocytosis resolved. Area demarcated and will be reassessed tomorrow (2) Atopic dermatitis Qualifiers: Atopic dermatitis type: unspecified Qualified Code(s): L20.9 - Atopic dermatitis, unspecified Is this a current diagnosis for this admission?: Yes Plan: This is likely the source of patient's skin breakdown leading to cellulitis. She has atopic dermatitis involving right ankle. Hydrocortisone cream as needed. (3) Lymphedema of right lower extremity Is this a current diagnosis for this admission?: Yes Plan: Chronic. Encourage leg elevation. (4) Hypertension Qualifiers: Hypertension type: unspecified Qualified Code(s): I10 - Essential (primary) hypertension Is this a current diagnosis for this admission?: Yes Plan: Started on losartan 50 mg twice a day. (5) Iron deficiency anemia Qualifiers: Iron deficiency anemia type: unspecified iron deficiency Qualified Code(s): D50.9 - Iron deficiency anemia, unspecified Is this a current diagnosis for this admission?: Yes Plan: Hemoglobin stable. Start on ferrous sulfate. Outpatient follow-up. (6) Morbid obesity with BMI of 45.0-49.9, adult Is this a current diagnosis for this admission?: Yes - Time Time Spent with patient: Less than 15 minutes Anticipated Discharge Disposition: Home, Self Care Anticipated Discharge Timeframe: within 48 hours
--- NOTE | 2019-10-22 19:08 | RADIOLOGY REPORT (SQ) ---
EXAM DESCRIPTION: VENOUS UNILATERAL LOWER IMAGES COMPLETED DATE/TIME: 10/22/2019 6:51 pm REASON FOR STUDY: right leg swelling. r/o dvt COMPARISON: None. TECHNIQUE: Dynamic and static bernard scale and color images acquired of the right leg venous system. S elected spectral images acquired with additional compression and augmentation maneuvers. The contrala teral common femoral vein and saphenofemoral junction were also imaged. Images stored on PACS. LIMITATIONS: None. FINDINGS: COMMON FEMORAL: Normal phasicity, compression and augmentation. No visualized echogenic ma terial on bernard scale. No defects on color images. FEMORAL: Normal compression and augmentation. No visualized echogenic material on bernard scale. No defe cts on color images. POPLITEAL: Normal compression, augmentation. No visualized echogenic material on bernard scale. No defec ts on color images. CALF VESSELS: Normal compression, augmentation. No visualized echogenic material on bernard scale. No de fects on color images. GSV and SSV: Normal compression, augmentation. No visualized echogenic material on bernard scale. No def ects on color images. ANY DEEP VENOUS INSUFFICIENCY: Not evaluated. ANY EVIDENCE OF POPLITEAL CYST: No. OTHER: No other significant finding. CONTRALATERAL COMMON FEMORAL VEIN AND SAPHENOFEMORAL JUNCTION: Normal phasicity, compression and augmentation. No visualized echogenic material on bernard scale. No de fects on color images. IMPRESSION: NO EVIDENCE DVT OR SVT IN THE RIGHT LEG. TECHNICAL DOCUMENTATION: JOB ID: [id number] [employer]- All Rights Reserved Reading location - IP/workstation name: [email or web address]
[2019-10-22] MEDS: MORPHINE SULFATE 10 MG/ML INJ IV PRN (21:42)
[2019-10-23] MEDS: HEPARIN SOD (PORCINE) 5,000 UNIT/ML 1 ML VIAL SUBCUT SCH ×3 (06:03→21:18)
[2019-10-23] MEDS: LINEZOLID 600 MG/300 ML RTUPB IV SCH ×2 (09:40→21:59)
[2019-10-23] MEDS: CEFEPIME HCL 2 GM in DEXTROSE 5%-WATER 50 ML IV SCH ×2 (09:40→21:17)
[2019-10-23] MEDS: DOCUSATE SODIUM 100 MG CAPSULE PO SCH ×2 (09:40→19:13)
[2019-10-23] MEDS: FERROUS SULFATE 325 MG TABLET PO SCH (09:40)
[2019-10-23] MEDS: LOSARTAN POTASSIUM 50 MG TABLET PO SCH ×2 (09:40→21:17)
--- NOTE | 2019-10-23 15:35 | PDOC PROGRESS REPORT ---
Subjective Progress Note for:: 10/23/19 Reason For Visit: RIGHT LOWER EXTREMITY CELLULITIS Physical Exam Vital Signs: Temp Pulse Resp BP Pulse Ox 98.0 F 76 17 146/58 H 97 10/23/19 11:10 10/23/19 11:10 10/23/19 11:10 10/23/19 11:10 10/23/19 11:10 Intake & Output 10/22/19 10/23/19 10/24/19 06:59 06:59 06:59 Intake Total 3795 1465 50 Balance 3795 1465 50 Weight 133.2 kg 133.5 kg General appearance: PRESENT: no acute distress, cooperative Neck exam: ABSENT: JVD Respiratory exam: PRESENT: unlabored. ABSENT: accessory muscle use, retraction Extremities exam: PRESENT: other - REDNESS IN RLE IMPROVING Neurological exam: PRESENT: alert, awake, oriented to person, oriented to place, oriented to time Results Laboratory Results: 10/21/19 06:19 10/22/19 06:00 Impressions: Ankle X-Ray 10/19/19 18:54 IMPRESSION: 1. No fracture or dislocation. 2. Diffuse reticulation present throughout the subcutaneous tissues raising the possibility of edema, cellulitis, venous stasis. 3. Possible, diffuse soft tissue swelling of the forefoot. Foot X-Ray 10/19/19 18:54 IMPRESSION: 1. No fracture or dislocation. 2. Diffuse reticulation present throughout the subcutaneous tissues raising the possibility of edema, cellulitis, venous stasis. 3. Possible, diffuse soft tissue swelling of the forefoot. Lower Extremity CT 10/19/19 21:21 IMPRESSION: 1. Diffuse swelling of the right leg which may be secondary to cellulitis, venous stasis, or lymphedema. 2. No intramuscular edema, air, or fluid collection, with no evidence of necrotizing fasciitis. However, please note that contrast-enhanced MRI is more sensitive for the evaluation of early necrotizing fasciitis, and may be performed if there is high clinical concern. Venous Doppler Study 10/22/19 00:00 IMPRESSION: NO EVIDENCE DVT OR SVT IN THE RIGHT LEG. Assessment and Plan - Diagnosis (1) Cellulitis of right lower leg Is this a current diagnosis for this admission?: Yes Plan: Continue broad-spectrum antibiotics with linezolid and cefepime. Blood culture currently negative. Patient is afebrile. Leukocytosis resolved. Area demarcated and will be reassessed tomorrow Venous doppler negative for DVT (2) Atopic dermatitis Qualifiers: Atopic dermatitis type: unspecified Qualified Code(s): L20.9 - Atopic dermatitis, unspecified Is this a current diagnosis for this admission?: Yes (3) Lymphedema of right lower extremity Is this a current diagnosis for this admission?: Yes (4) Hypertension Qualifiers: Hypertension type: unspecified Qualified Code(s): I10 - Essential (primary) hypertension Is this a current diagnosis for this admission?: Yes (5) Iron deficiency anemia Qualifiers: Iron deficiency anemia type: unspecified iron deficiency Qualified Code(s): D50.9 - Iron deficiency anemia, unspecified Is this a current diagnosis for this admission?: Yes (6) Morbid obesity with BMI of 45.0-49.9, adult Is this a current diagnosis for this admission?: Yes - Time Time Spent with patient: Less than 15 minutes Anticipated Discharge Disposition: Home, Self Care Anticipated Discharge Timeframe: within 24 hours
[2019-10-24] MEDS: HEPARIN SOD (PORCINE) 5,000 UNIT/ML 1 ML VIAL SUBCUT SCH ×2 (05:58→13:37)
[2019-10-24] MEDS: FERROUS SULFATE 325 MG TABLET PO SCH (10:37)
[2019-10-24] MEDS: CEFEPIME HCL 2 GM in DEXTROSE 5%-WATER 50 ML IV SCH (10:37)
[2019-10-24] MEDS: LOSARTAN POTASSIUM 50 MG TABLET PO SCH (10:37)
[2019-10-24] MEDS: DOCUSATE SODIUM 100 MG CAPSULE PO SCH (10:37)
[2019-10-24] MEDS: LINEZOLID 600 MG/300 ML RTUPB IV SCH (11:35)
[2019-10-24 11:50] VITALS: BP 152/53
--- NOTE | 2019-10-24 13:16 | PDOC DISCHARGE SUMMARY ---
Impression - Admit/DC Date/PCP Admission Date/Primary Care Provider: 10/20/19 01:25 Discharge Date: 10/24/19 - Discharge Diagnosis (1) Cellulitis of right lower leg Is this a current diagnosis for this admission?: Yes (2) Atopic dermatitis Is this a current diagnosis for this admission?: Yes (3) Lymphedema of right lower extremity Is this a current diagnosis for this admission?: Yes (4) Hypertension Is this a current diagnosis for this admission?: Yes (5) Iron deficiency anemia Is this a current diagnosis for this admission?: Yes (6) Morbid obesity with BMI of 45.0-49.9, adult Is this a current diagnosis for this admission?: Yes - Additional Information Resuscitation Status: Full Code Referrals: [facility] [Provider Group] WILIAN KIM MD [ACTIVE STAFF] - Prescriptions: Sulfamethoxazole/Trimethoprim [Bactrim Ds Tablet] 1 each PO Q12 9 Days #18 tablet Losartan Potassium [Cozaar 50 mg Tablet] 50 mg PO Q12 30 Days #60 tablet Naproxen [EC-Naproxen] 1 - 2 tab PO TIDP PRN #24 tablet.dr JOHNSON Reason: Ferrous Sulfate [Feosol 325 mg Tablet] 325 mg PO DAILY #30 tablet Home Medications: Acetaminophen [Tylenol] 325 mg PO DAILYP PRN 10/20/19 Aspirin/Caffeine [Bc Pain Relief Powder Packet] 1 pkt PO DAILY PRN 10/20/19 Hydrocortisone [Cortizone-10] 57 gm TP DAILY 10/20/19 Omeprazole Magnesium [Prilosec Otc] 40 mg PO BID 10/20/19 Pamabrom [Diuretic Softgel] 50 mg PO Q8 10/20/19 Ferrous Sulfate [Feosol 325 mg Tablet] 325 mg PO DAILY #30 tablet 10/24/19 Losartan Potassium [Cozaar 50 mg Tablet] 50 mg PO Q12 30 Days #60 tablet 10/24/19 Naproxen [EC-Naproxen] 1 - 2 tab PO TIDP PRN #24 tablet. 10/24/19 Sulfamethoxazole/Trimethoprim [Bactrim Ds Tablet] 1 each PO Q12 9 Days #18 tablet 10/24/19 History of Present Illiness History of Present Illness: According to admitting provider: ADRIANA GRANADOS is a 54 year old female who presented the emergency room history of right lower extremity swelling and pain. She admits that 5 days ago she noticed a small area of eczema on her right medial ankle which appeared to be red. From that time the redness and swelling has gradually increased becoming very severe over the last 2 days with with multiple small superficial bullae with weeping and crusting. Her pain is a constant severe sharp hot stabbing sensation primarily centered around her right medial ankle without radiation, but worsened by walking or weightbearing. She denies other associated or accompanying signs and symptoms. She denies prior similar episodes. She has not identified additional aggravating or ameliorating factors for her right lower extremity swelling and pain. In the emergency room she was found to have a minimally elevated white blood count and an obvious extensive cellulitis of the right lower extremity. IV antibiotic therapy was initiated in the emergency room. She was subsequently admitted to the hospital for further evaluation and treatment. Hospital Course Hospital Course: (1) Cellulitis of right lower leg Is this a current diagnosis for this admission?: Yes Plan: CT scan of the lower extremity only showed soft tissue swelling consistent with cellulitis. Initially treated with broad-spectrum IV antibiotics with linezolid and cefepime. Blood culture currently negative. Patient is afebrile. Leukocytosis which resolved. Area demarcated improved significantly with IV antibiotics. Being discharged on oral Bactrim for 9 days. (2) Atopic dermatitis Qualifiers: Atopic dermatitis type: unspecified Qualified Code(s): L20.9 - Atopic dermatitis, unspecified Is this a current diagnosis for this admission?: Yes Plan: This is likely the source of patient's skin breakdown leading to cellulitis. She has atopic dermatitis involving right ankle. She uses cortisone cream at home. However she still has significant itching which leads to excoriations. I have given her a handwritten prescription for triamcinolone acetonide cream which is of hypotensive that the cortisone cream and hopefully should help with the itching to prevent further excoriations. (3) Lymphedema of right lower extremity Is this a current diagnosis for this admission?: Yes Plan: Chronic. Encourage leg elevation. Venous Doppler negative for any DVT. Patient encouraged to go his keep leg elevated and avoid standing for long periods. (4) Hypertension Qualifiers: Hypertension type: unspecified Qualified Code(s): I10 - Essential (primary) hypertension Is this a current diagnosis for this admission?: Yes Plan: Started on losartan 50 mg twice a day. (5) Iron deficiency anemia Qualifiers: Iron deficiency anemia type: unspecified iron deficiency Qualified Code(s): D50.9 - Iron deficiency anemia, unspecified Is this a current diagnosis for this admission?: Yes Plan: Hemoglobin stable. Start on ferrous sulfate. Outpatient follow-up. (6) Morbid obesity with BMI of 45.0-49.9, adult Is this a current diagnosis for this admission?: Yes Patient given information to follow-up to be established with a primary care provider. She will coordinate with our social team. Physical Exam Vital Signs: Temp Pulse Resp BP Pulse Ox 98.5 F 80 16 152/53 H 96 10/24/19 11:49 10/24/19 11:49 10/24/19 11:49 10/24/19 11:49 10/24/19 11:49 Intake & Output 10/23/19 10/24/19 10/25/19 06:59 06:59 06:59 Intake Total 1465 750 290 Balance 1465 750 290 Weight 133.5 kg 133.5 kg General appearance: PRESENT: no acute distress, cooperative Neck exam: ABSENT: JVD Respiratory exam: PRESENT: unlabored GI/Abdominal exam: PRESENT: soft Extremities exam: PRESENT: other - RLE swelling improving and area of erythema over anterior oconnor and posterior calf is improving as well. evidnced further by formation of skin wrinkles as the leg swelling improves Neurological exam: PRESENT: alert, awake Results Laboratory Results: WBC 8.8 10^3/uL (4.0-10.5) 10/21/19 06:19 RBC 3.58 10^6/uL (3.72-5.28) L 10/21/19 06:19 Hgb 8.6 g/dL (12.0-15.5) L 10/21/19 06:19 Hct 26.4 % (36.0-47.0) L 10/21/19 06:19 MCV 74 fl (80-97) L 10/21/19 06:19 MCH 24.1 pg (27.0-33.4) L 10/21/19 06:19 MCHC 32.7 g/dL (32.0-36.0) 10/21/19 06:19 RDW 17.4 % (11.5-14.0) H 10/21/19 06:19 Plt Count 308 10^3/uL (150-450) 10/21/19 06:19 Lymph % (Auto) 20.6 % (13-45) 10/19/19 19:07 Russell % (Auto) 6.4 % (3-13) 10/19/19 19:07 Eos % (Auto) 1.6 % (0-6) 10/19/19 19:07 Baso % (Auto) 0.5 % (0-2) 10/19/19 19:07 Reticulocyte # 0.047 10^6/uL (0.028-0.122) 10/22/19 06:00 Absolute Neuts (auto) 7.7 10^3/uL (1.7-8.2) 10/19/19 19:07 Absolute Lymphs (auto) 2.2 10^3/uL (0.5-4.7) 10/19/19 19:07 Absolute Monos (auto) 0.7 10^3/uL (0.1-1.4) 10/19/19 19:07 Absolute Eos (auto) 0.2 10^3/uL (0.0-0.6) 10/19/19 19:07 Absolute Basos (auto) 0.1 10^3/uL (0.0-0.2) 10/19/19 19:07 Seg Neutrophils % 70.9 % (42-78) 10/19/19 19:07 Retic Count (auto) 1.24 % (0.66-2.85) 10/22/19 06:00 Sodium 141.8 mmol/L (137-145) 10/22/19 06:00 Potassium 4.1 mmol/L (3.6-5.0) 10/22/19 06:00 Chloride 101 mmol/L (98-107) 10/22/19 06:00 Carbon Dioxide 30 mmol/L (22-30) 10/22/19 06:00 Anion Gap 11 (5-19) 10/22/19 06:00 BUN 5 mg/dL (7-20) L 10/22/19 06:00 Creatinine 0.61 mg/dL (0.52-1.25) 10/22/19 06:00 Est GFR ( Amer) > 60 (>60) 10/22/19 06:00 Est GFR (MDRD) Non-Af > 60 (>60) 10/22/19 06:00 Glucose 122 mg/dL (75-110) H 10/22/19 06:00 Hemoglobin A1c % 5.4 % (4.7-6.0) 10/21/19 06:19 Lactic Acid 0.8 mmol/L (0.7-2.1) 10/19/19 20:44 Calcium 8.7 mg/dL (8.4-10.2) 10/22/19 06:00 Magnesium 2.1 mg/dL (1.6-2.3) 10/21/19 06:19 Iron 35.2 ug/dL (37-170) L 10/22/19 06:00 TIBC 321 ug/dL (250-450) 10/22/19 06:00 % Saturation 11 % 10/22/19 06:00 Ferritin 62.50 ng/mL (11.1-264.0) 10/22/19 06:00 Total Bilirubin 0.3 mg/dL (0.2-1.3) 10/19/19 19:07 Direct Bilirubin 0.3 mg/dL (0.0-0.4) 10/19/19 19:07 Neonat Total Bilirubin Not Reportable 10/19/19 19:07 Neonat Direct Bilirubin Not Reportable 10/19/19 19:07 Neonat Indirect Bili Not Reportable 10/19/19 19:07 AST 16 U/L (14-36) 10/19/19 19:07 ALT 10 U/L (<35) 10/19/19 19:07 Alkaline Phosphatase 28 U/L (38-126) L 10/19/19 19:07 C-Reactive Protein 211.4 mg/L (<10.0) H 10/19/19 19:07 Total Protein 7.0 g/dL (6.3-8.2) 10/19/19 19:07 Albumin 3.8 g/dL (3.5-5.0) 10/19/19 19:07 Vitamin B12 266.0 pg/mL (239-931) 10/22/19 06:00 Folate 6.96 ng/mL (>2.76) 10/22/19 06:00 TSH 2.72 uIU/mL (0.47-4.68) 10/21/19 06:19 Urine Color COLORLESS 10/19/19 19: Urine Appearance CLEAR 10/19/19 19: Urine pH 7.0 (5.0-9.0) 10/19/19 19:21 Ur Specific [place] 1.002 10/19/19 19:21 Urine Protein NEGATIVE mg/dL (NEGATIVE) 10/19/19 19:21 Urine Glucose (UA) NEGATIVE mg/dL (NEGATIVE) 10/19/19 19:21 Urine Ketones TRACE mg/dL (NEGATIVE) H 10/19/19 19:21 Urine Blood SMALL (NEGATIVE) H 10/19/19 19:21 Urine Nitrite NEGATIVE (NEGATIVE) 10/19/19 19: Urine Bilirubin NEGATIVE (NEGATIVE) 10/19/19 19: Urine Urobilinogen NEGATIVE mg/dL (<2.0) 10/19/19 19:21 Ur Leukocyte Esterase NEGATIVE (NEGATIVE) 10/19/19 19:21 Urine WBC (Auto) 0 /HPF 10/19/19 19:21 Urine Ascorbic Acid NEGATIVE (NEGATIVE) 10/19/19 19:21 Impressions: Ankle X-Ray 10/19/19 18:54 IMPRESSION: 1. No fracture or dislocation. 2. Diffuse reticulation present throughout the subcutaneous tissues raising the possibility of edema, cellulitis, venous stasis. 3. Possible, diffuse soft tissue swelling of the forefoot. Foot X-Ray 10/19/19 18:54 IMPRESSION: 1. No fracture or dislocation. 2. Diffuse reticulation present throughout the subcutaneous tissues raising the possibility of edema, cellulitis, venous stasis. 3. Possible, diffuse soft tissue swelling of the forefoot. Lower Extremity CT 10/19/19 21:21 IMPRESSION: 1. Diffuse swelling of the right leg which may be secondary to cellulitis, venous stasis, or lymphedema. 2. No intramuscular edema, air, or fluid collection, with no evidence of necrotizing fasciitis. However, please note that contrast-enhanced MRI is more sensitive for the evaluation of early necrotizing fasciitis, and may be performed if there is high clinical concern. Venous Doppler Study 10/22/19 00:00 IMPRESSION: NO EVIDENCE DVT OR SVT IN THE RIGHT LEG. Plan Time Spent: Greater than 30 Minutes Stroke Is this a Stroke Patient?: No Acute Heart Failure Is this a Heart Failure Patient?: No
== END 2019-10-24 14:35 | disposition home or self-care (01) | DRG 603 ==
LOC: ER 18:29 → EH 10-20 01:25 → 4S 10-20 03:00
PROVIDERS: ADMIT Emergency Medicine; ATTEND Internal Medicine
DX: L03.115 Cellulitis of right lower limb (principal); Z68.42 Body mass index [BMI] 45.0-49.9, adult; E66.01 Morbid (severe) obesity due to excess calories; E87.6 Hypokalemia; I10 Essential (primary) hypertension; F41.9 Anxiety disorder, unspecified; M19.90 Unspecified osteoarthritis, unspecified site; L20.9 Atopic dermatitis, unspecified; I89.0 Lymphedema, not elsewhere classified; D50.9 Iron deficiency anemia, unspecified
CPT/HCPCS: 36415; 80048; 80053; 81001; 82607; 82728; 82746; 83036; 83540; 83550; 83605; 83735; 84443; 85025; 85027; 85045; 86140; 87040; 93971; 96365; 96367; 96375; 99285; J0692; J1644; J2020; J2270; J2405; J2543; J3370; J3490; J7060; J7120